=== PATIENT | male | born 1935 | race Two or more races ===

== ENCOUNTER 2023-10-11 12:30 | Inpatient (IN) | payer OTHER ==
[~2023-10-11] VITALS: Ht 170.2 cm; Wt 72.6 kg
[2023-10-11] MEDS ORDERED: ALENDRONAT70 MG/75 M PO (12:38)
[2023-10-11] MEDS ORDERED: CHILDREN'S ASPI81 MG PO (12:38)
[2023-10-11] MEDS ORDERED: BUSPIRONE HCL7.5 MG PO (12:38)
[2023-10-11] MEDS ORDERED: ATORVASTATIN CA10 MG PO (12:38)
[2023-10-11] MEDS ORDERED: CHOLECALCIFEROL1 GM MC (12:39)
[2023-10-11] MEDS ORDERED: HORIZANT300 MG PO (12:39)
[2023-10-11] MEDS ORDERED: FENOFIBRATE150 MG PO (12:39)
[2023-10-11] MEDS ORDERED: METFORMIN HCL500 M3 PO (12:39)
[2023-10-11] MEDS ORDERED: DUTASTERIDE0.5 MG (12:39)
[2023-10-11] MEDS ORDERED: TOVIAZ4 MG PO (12:40)
[2023-10-11] MEDS ORDERED: TOPROL XL50 MG PO (12:40)
[2023-10-11] MEDS ORDERED: SERTRALINE HCL25 MG PO (12:40)
[2023-10-11] MEDS ORDERED: ACID REDUCER20 M1 PO (12:40)
[2023-10-11 13:41] LABS: ABG PH 7.434 (7.35-7.45); ABG PO2 68.1 mmHg (80-100); BASE EXCESS -2.8 mmol/l; BICARBONATE 20.3 mmol/l (23-25); SaO2 93.8 %; Tco2 21.3 mmol/l; allen test SATISFACTORY; o2 21 %; puncture site RADIAL LEFT
[2023-10-11 14:04] LABS: URINE APPEARANCE Turbid; URINE BILIRRUBIN Negative (NEGATIVE); URINE BLOOD Moderate; URINE COLOR Yellow; URINE GLUCOSE Negative (NEGATIVE); URINE LEUKOCYTE Large; URINE NITRATE Positive; URINE PROTEIN Trace (NEGATIVE); URINE UROBILINOGEN 0.2 E.U./dl
[2023-10-11 14:08] LABS: URINE EPITHELIAL CELLS 6.3 uL (0.0-38.8); URINE RBC 113.2 uL (0.0-20.8); URINE WBC 1856.8 uL (0.0-23.2)
[2023-10-11 14:21] LABS: URINE BACTERIA > 9821.5 uL (0.0-1933)
[2023-10-11 14:23] LABS: HEMATOCRIT 36.8 % (39.0-48.0); HEMOGLOBIN 12.2 g/dL (13-16.00); INR 1.11; MEAN CORPUSCULAR HEMOGLOBIN 32.1 pg (27.00-32.0); MEAN CORPUSCULAR HGB CONC 33.1 g/dl (32.0-36.0); PARTIAL THROMBOPLASTIN TIME 23.1 SECONDS (22.0-34.0); PLATELET COUNT 198 K/uL (150-450); PROTHROMBIN TIME 11.6 SECONDS (9.0-11.5); RED BLOOD COUNT 3.79 M/uL (4.00-6.00)
[2023-10-11 14:29] LABS: ALBUMIN 3.3 gm/dL (3.4-5.0); BILIRUBIN TOTAL 1.13 mg/dL (0.3-1.2); CALCIUM 8.9 mg/dL (8.5-10.1); CREATININE SERUM 1.02 mg/dL (0.70-1.30); GFR 69.09; GLOBULINA 3.1 G/DL (2.4-3.5); POTASSIUM 3.24 mEq/L (3.5-5.1); TOTAL PROTEIN 6.4 gm/dL (6.4-8.2)
[2023-10-13 12:07] LABS: HEMATOCRIT 33.6 % (39.0-48.0); HEMOGLOBIN 11.2 g/dL (13-16.00); MEAN CELL VOLUME 97.6 fL (80.0-100.00); MEAN CORPUSCULAR HEMOGLOBIN 32.7 pg (27.00-32.0); MEAN CORPUSCULAR HGB CONC 33.5 g/dl (32.0-36.0); PLATELET COUNT 175 K/uL (150-450); RED BLOOD COUNT 3.44 M/uL (4.00-6.00); RED CELL DISTRIBUTION WIDTH 15.4 % (11.5-14.5)
[2023-10-13 12:29] LABS: CALCIUM 8.4 mg/dL (8.5-10.1); CREATININE SERUM 0.69 mg/dL (0.70-1.30); GFR 108.46; POTASSIUM 3.85 mEq/L (3.5-5.1); PROSTATIC SPECIFIC ANTIGEN 2.12 NG/ML (0.010-4.00)
[2023-10-14 06:48] LABS: HEMATOCRIT 37.3 % (39.0-48.0); HEMOGLOBIN 12.4 g/dL (13-16.00); MEAN CELL VOLUME 96.4 fL (80.0-100.00); MEAN CORPUSCULAR HEMOGLOBIN 32.2 pg (27.00-32.0); MEAN CORPUSCULAR HGB CONC 33.4 g/dl (32.0-36.0); PLATELET COUNT 181 K/uL (150-450); RED BLOOD COUNT 3.87 M/uL (4.00-6.00); RED CELL DISTRIBUTION WIDTH 15.1 % (11.5-14.5)
[2023-10-14 07:16] LABS: BILIRUBIN TOTAL 0.67 mg/dL (0.3-1.2); CALCIUM 8.8 mg/dL (8.5-10.1); CREATININE SERUM 0.61 mg/dL (0.70-1.30); GFR 125.04; MAGNESIUM 1.7 mg/dL (1.8-2.4); PHOSPHOROUS 2.7 mg/dL (2.5-4.9); POTASSIUM 3.88 mEq/L (3.5-5.1)
[2023-10-14 07:23] LABS: C-REACTIVE PROTEIN 4.88 MG/DL (0.00-0.29)
[2023-10-15 07:01] LABS: URINE APPEARANCE Clear; URINE BILIRRUBIN Negative (NEGATIVE); URINE BLOOD Large; URINE COLOR Yellow; URINE GLUCOSE Negative (NEGATIVE); URINE LEUKOCYTE Small; URINE NITRATE Negative; URINE PROTEIN Trace (NEGATIVE); URINE UROBILINOGEN 0.2 E.U./dl
[2023-10-15 07:04] LABS: URINE EPITHELIAL CELLS 2.4 uL (0.0-38.8); URINE RBC 1027.6 uL (0.0-20.8); URINE WBC 38.7 uL (0.0-23.2)
[2023-10-16 06:52] LABS: HEMATOCRIT 37.6 % (39.0-48.0); HEMOGLOBIN 12.6 g/dL (13-16.00); MEAN CELL VOLUME 97.7 fL (80.0-100.00); MEAN CORPUSCULAR HEMOGLOBIN 32.8 pg (27.00-32.0); MEAN CORPUSCULAR HGB CONC 33.5 g/dl (32.0-36.0); PLATELET COUNT 207 K/uL (150-450); RED BLOOD COUNT 3.85 M/uL (4.00-6.00); RED CELL DISTRIBUTION WIDTH 14.8 % (11.5-14.5)
== END 2023-10-16 19:42 | disposition home or self-care (01) | DRG 872 ==
LOC: ER 12:30 → MEDI 20:55
PROVIDERS: General Practice; Internal Medicine Infectious Disease; ADMIT Internal Medicine; ATTEND Internal Medicine
PROC: BW28ZZZ Computerized Tomography (CT Scan) of Head (ICD-10-PCS; principal; 2023-10-11)
PROC: BW21ZZZ Computerized Tomography (CT Scan) of Abdomen and Pelvis (ICD-10-PCS; 2023-10-11)
PROC: B24BYZZ Ultrasonography of Heart with Aorta using Other Contrast (ICD-10-PCS; 2023-10-11)
DX: A41.9 Sepsis, unspecified organism (principal); N39.0 Urinary tract infection, site not specified; N12 Tubulo-interstitial nephritis, not specified as acute or chronic; A41.01 Sepsis due to Methicillin susceptible Staphylococcus aureus; D72.829 Elevated white blood cell count, unspecified